=== PATIENT | male | born 1955 | race African-American/Black ===

== ENCOUNTER 2018-05-24 13:05 | Emergency (ER) | payer BC ==
[~2018-05-24] VITALS: Ht 180.3 cm; Wt 90.4 kg
[2018-05-24 13:20] VITALS: BP 128/71
== END 2018-05-24 14:10 | disposition home or self-care (01) ==
LOC: ER 13:05
DX: R22.0 Localized swelling, mass and lump, head (principal); E78.5 Hyperlipidemia, unspecified; I10 Essential (primary) hypertension; Z85.46 Personal history of malignant neoplasm of prostate

== ENCOUNTER 2018-08-18 08:13 | Emergency (ER) | payer BC ==
[~2018-08-18] VITALS: Ht 182.9 cm; Wt 94.3 kg
[2018-08-18 08:20] VITALS: BP 132/91
== END 2018-08-18 10:27 | disposition home or self-care (01) ==
LOC: ER 08:13
DX: J20.9 Acute bronchitis, unspecified (principal); E78.5 Hyperlipidemia, unspecified; I10 Essential (primary) hypertension
CPT/HCPCS: 71046

== ENCOUNTER 2021-04-20 08:34 | Emergency (ER) | payer OTHER ==
[~2021-04-20] VITALS: Ht 182.9 cm; Wt 97.5 kg
[2021-04-20 09:55] VITALS: BP 154/84
== END 2021-04-20 11:11 | disposition home or self-care (01) ==
LOC: ER 08:34
DX: M25.552 Pain in left hip (principal); M54.5 Low back pain; M62.838 Other muscle spasm; E78.5 Hyperlipidemia, unspecified; I10 Essential (primary) hypertension; V43.52XA Car driver injured in collision with other type car in traffic accident, initial encounter; Y93.89 Activity, other specified; Y92.488 Other paved roadways as the place of occurrence of the external cause; Y99.8 Other external cause status
CPT/HCPCS: 72110; 73502